=== PATIENT | male | born 1965 | race African-American/Black ===

== ENCOUNTER 2020-11-01 06:34 | Emergency (ER) | payer SELFPAY ==
[2020-11-01 06:36] VITALS: BP 170/134; PULSE 128; RESP 96; TEMP 36.9; O2SAT 95; BMI 25.9
--- NOTE | 2020-11-01 06:55 | ED.VISSUMM ---
- ER Visit Summary Date of Service: 11/01/20 Chief Complaint: Bugs History of Present Illness: The patient is a 55 M who complains of bugs to his teeth, ears, and neck on the left side. This has been going on for days. Never had this before. He does use methamphetamines. Denies any suicidal or homicidal thoughts. He has no trouble taking care of himself. Physical Examination: Hypertensive and tachycardic but otherwise vitals are unremarkable. Head and neck are unremarkable except for poor dentition diffusely. No definite abscess. Airway is intact. No tonsillar swelling noted. No change in voice. He does have some left anterior cervical lymphadenopathy with tiny areas of skin excoriation in 2 places. No other changes to the skin. No insects are noted. Heart is tachycardic but regular. Lungs are clear. Cranial nerves grossly intact. Normal strength and sensation. He is alert and oriented. He is depressed. Test Results: None performed Emergency Department Course and Treatment: I believe a lot of the patient's symptoms are related to methamphetamine use. I do not appreciate any insects. He does have poor dentition with some left side lymphadenopathy, skin excoriation, and ear pain. He may have a dental infection. Airway and the rest of his exam is unremarkable. We will treat with Twyla Beauchamp. Follow-up with dental. Patient was noted to have high blood pressure. He does not have a history of high blood pressure. This is likely from methamphetamine use. He declined any treatment. He does not appear to have a hypertensive emergency. Patient voiced understanding agreement. Outpatient follow-up. Treatment Plan: As above Disposition: Discharge Impression: Poor dentition, methamphetamine use This note was generated with [employer] dictation software. It may contain incorrect words, spelling, and punctuation that were not noted in review of the chart prior to signing ED Disposition - Plan for ED Patient: Referrals: NOT,DEFINED [Primary Care Provider] -
[2020-11-01] MEDS: Penicillin Vk 250 MG Tablet 500 MG PO (06:58)
--- NOTE | 2020-11-01 06:58 | ED.DEP ---
ED Disposition - Plan for ED Patient: Instructions: ED Dental Pain, ED Hypertension, To Be Confirmed, Understanding Methamphetamine Abuse and Addiction Prescriptions: Penicillin V Potassium 500 mg PO 4X/DAY #40 tab Prescription Printed Referrals: [facility] Son [NON-STAFF] -
[2020-11-01 07:23] VITALS: RESP 16
== END 2020-11-01 07:24 | disposition home or self-care (01) ==
LOC: ED 07:16
PROVIDERS: Emergency Provider Emergency Medicine
DX: K08.9 Disorder of teeth and supporting structures, unspecified (principal); F15.90 Other stimulant use, unspecified, uncomplicated; R03.0 Elevated blood-pressure reading, without diagnosis of hypertension
CPT/HCPCS: 99283

== ENCOUNTER 2020-11-06 02:06 | Emergency (ER) | payer SELFPAY ==
[2020-11-06 02:09] VITALS: BP 151/100; PULSE 108; RESP 18; TEMP 36.6; O2SAT 94; BMI 20.7
--- NOTE | 2020-11-06 02:34 | ED.VIS.GEN ---
History of Present Illness Chief Complaint: General Illness Informant: Patient Onset: Weeks - 1 week Context: Gradual Onset Current Severity: Mild Maximum Severity: Mild Narrative: Patient presents due to concern for throat infection. Patient states that he was seen here recently for throat or mouth infection and was given penicillin. He states he continues to have symptoms and believes he has bugs crawling out of his throat. He also has some right ear pain. No fever or chills. Past Medical History - Allergies and Home Meds Allergies/Adverse Reactions: Allergies No Known Allergies Allergy (Verified 11/01/20 06:37) Primary Care Physician: [facility] Son [NON-STAFF] - As soon as possible Past Medical History: None Smoking Status: Current every day smoker Review of Systems General: Denies: Chills, Fever Eyes: Denies: Visual changes - bilaterally ENT: Reports: Right ear pain, Sore throat Cardiovascular: Denies: Chest pain Respiratory: Denies: Dyspnea, Cough Gastrointestinal: Denies: Abdominal pain, Vomiting, Diarrhea Musculoskeletal: Denies: Extremity Pain Neurological: Denies: Headache Hematologic: Denies: Easy bruising, Easy bleeding Allergy: Denies: Uticaria Physical Exam Vital Signs/Narrative: Vital Signs Temp Pulse Resp BP Pulse Ox 11/06/20 02:09 97.8 F 108 H 18 151/100 H 94 Inital Vital Signs reviewed: Yes General: Well nourished, Well developed Head: Normocephalic ENT: TM's clear, - - Patient has mildly dry mucous membranes. There is thick, tacky mucous noted along his tonsils. He does have what looks like a tonsillar stone on the right with some mild inflammation. Posterior pharynx is clear. Patient is tolerating secretions well with strong voice. Uvula is midline. Cardiovascular: Regular rate, Regular rhythm Respiratory: No distress, CTA bilaterally Abdomen: Soft, Nontender Skin: Normal color Neurological: Alert Psychological: Normal affect Diagnostic/Tx/Re-eval - Medical Decision Making Patient does have what appears to be a tonsillar stone on the right. There are some mild inflammation. He is advised to increase fluids. We will switch him to clindamycin. He was advised to follow-up with [facility]. He was advised that he is able to go back to work, he is not contagious. ED Disposition - Plan for ED Patient: Disposition: Home or Assisted Living Diagnosis: Pharyngitis Instructions: ED Pharyngitis, Report Pending Prescriptions: Clindamycin [Cleocin] 300 mg PO TID #60 cap Transmission Status: Received by [facility]MM[facility] [facility] Referrals: Darby Son [NON-STAFF] - As soon as possible
[2020-11-06] MEDS: Clindamycin HCl 150 MG Capsule 300 MG PO (02:42)
[2020-11-06 02:43] VITALS: RESP 16
== END 2020-11-06 02:44 | disposition home or self-care (01) ==
LOC: ED 02:39
PROVIDERS: Emergency Provider Emergency Medicine
DX: J02.9 Acute pharyngitis, unspecified (principal); F17.200 Nicotine dependence, unspecified, uncomplicated
CPT/HCPCS: 99283

== ENCOUNTER 2020-11-10 17:44 | Emergency (ER) | payer SELFPAY ==
[2020-11-10 17:45] VITALS: BP 170/100; PULSE 114; RESP 16; TEMP 36.5; O2SAT 99; BMI 25.4
--- NOTE | 2020-11-10 17:56 | ED.VIS.GEN ---
History of Present Illness Chief Complaint: Mental Health Informant: Patient Narrative: Patient presents with complaint of maggots coming out of his mouth in his right ear. Patient has been seen twice in the last week for similar complaints. I saw him on last visit and he did have a white patch on his right tonsil with mild pharyngitis. He was placed on clindamycin. Patient presents back today stating that he still has maggots coming out of his throat and ear. Past Medical History - Allergies and Home Meds Allergies/Adverse Reactions: Allergies No Known Allergies Allergy (Verified 11/10/20 17:45) Primary Care Physician: Care Physician,No Primary [Primary Care Provider] - Smoking Status: Current every day smoker Drugs: - - Methamphetamines 2 to 3 days ago Review of Systems General: Denies: Chills, Fever Eyes: Denies: Visual changes - bilaterally ENT: Reports: Right ear pain, Sore throat Cardiovascular: Denies: Chest pain Respiratory: Denies: Dyspnea, Cough Gastrointestinal: Denies: Abdominal pain, Vomiting, Diarrhea Musculoskeletal: Denies: Extremity Pain Neurological: Denies: Headache Hematologic: Denies: Easy bruising, Easy bleeding Allergy: Denies: Uticaria Physical Exam Vital Signs/Narrative: Vital Signs Temp Pulse Resp BP Pulse Ox 11/10/20 17:45 97.7 F L 114 H 16 170/100 H 99 Inital Vital Signs reviewed: Yes General: Well nourished, Well developed Head: Normocephalic, Atraumatic Eyes: Perrl, EOMI ENT: - - Cerumen right ear canal. Posterior pharynx examination now clear. Improved when compared to prior study that I performed last week. Cardiovascular: Regular rate, Regular rhythm Respiratory: No distress, CTA bilaterally Abdomen: Soft, Nontender Skin: Normal color Neurological: Alert, Oriented x3 Psychological: - - Anxious Diagnostic/Tx/Re-eval - Medical Decision Making Debrox and ear irrigation was ordered. Patient asked to speak to me first. When I first saw the patient I had an honest discussion with him telling him point blank that there are no bugs crawling out of his skin, throat, or ear. I advised him that this is secondary to the methamphetamines that he has been using. When he asked to speak with me again he just wanted to ensure that he was okay. He states that he will not use any meth. He has follow-up planned with [facility]. He does not want to wait for ear irrigation at this time and is wants to go home. ED Disposition - Plan for ED Patient: Disposition: Home or Assisted Living Diagnosis: Methamphetamine use Instructions: ED Drug Abuse Referrals: Darby Son [NON-STAFF] -
== END 2020-11-10 18:30 | disposition home or self-care (01) ==
LOC: ED 18:26
PROVIDERS: Emergency Provider Emergency Medicine
DX: F15.90 Other stimulant use, unspecified, uncomplicated (principal); F17.200 Nicotine dependence, unspecified, uncomplicated
CPT/HCPCS: 99282

== ENCOUNTER 2020-11-25 22:57 | Emergency (ER) | payer SELFPAY ==
[2020-11-25 22:58] VITALS: PULSE 70; RESP 20; TEMP 35.6; O2SAT 96; BMI 25.7
--- NOTE | 2020-11-25 23:09 | ED.VIS.GEN ---
History of Present Illness Chief Complaint: Bite Informant: Patient Narrative: Patient stated he feels like bugs are crawling out of his fingers and toes. He has been seen here multiple times for this. He has a persistent delusion. Stated he has not used methamphetamines for the last 3 weeks. He supposed to see the start him in clinic for this. He has no history of mental health. Denies any other illicit drugs. No suicidal or homicidal ideation. Past Medical History - Allergies and Home Meds Allergies/Adverse Reactions: Allergies No Known Allergies Allergy (Verified 11/10/20 17:45) Primary Care Physician: Care Physician,No Primary [Primary Care Provider] - Prior records reviewed: Yes Past Medical History: - - Reviewed Surgical History: noncontributory Smoking Status: Former smoker Alcohol: None Drugs: None Review of Systems General: Denies: Chills, Fever, Sweats Eyes: Denies: Visual changes - bilaterally, Diplopia ENT: Denies: Rhinorrhea, Sore throat Cardiovascular: Denies: Chest pain, Palpitations Respiratory: Denies: Dyspnea, Cough, Dyspnea on exertion Gastrointestinal: Denies: Abdominal pain, Nausea, Vomiting, Diarrhea, Melena, Hematochezia Genitourinary: Denies: Dysuria, Hematuria, Frequency Musculoskeletal: Denies: Back pain, Extremity Pain Skin: Denies: Rash, Wounds Neurological: Denies: Headache, Weakness, Numbness Psych: Reports: - - See HPI. Denies: Depression, Anxiety Physical Exam Vital Signs/Narrative: Vital Signs Temp Pulse Resp Pulse Ox 11/25/20 22:58 96.1 F L 70 20 H 96 General: Well nourished, Well developed, No Acute Distress Head: Normocephalic, Atraumatic Eyes: Perrl, EOMI ENT: Moist mucous membranes, No rhinorrhea Neck: Supple, Nontender Cardiovascular: Regular rate, Regular rhythm, No murmurs Respiratory: No distress, CTA bilaterally, Chest nontender Abdomen: Soft, Nontender, Nondistended, Normal bowel sounds Back: Nontender, Normal Inspection Extremities: Nontender, No edema Skin: Normal color, No rash, - - Small superficial abrasion of the back of the left hand. Small superficial cut to the left thumb. No foreign bodies or insects Neurological: Alert, Oriented x3, Cranial nerves II-XII grossly intact, Normal Strength, Normal Sensation Psychological: Normal affect, Normal Mood Diagnostic/Tx/Re-eval - Medical Decision Making Patient reassured. This appears to be a delusion. There is no signs or symptoms of insects on the body. We will follow-up with mental health with counseling center ED Disposition - Plan for ED Patient: Diagnosis: Delusion Referrals: Counseling,Center [GROUP OF PHYSICIANS] -
== END 2020-11-25 23:15 | disposition home or self-care (01) ==
LOC: ED 23:13
PROVIDERS: Emergency Provider Emergency Medicine
DX: F22 Delusional disorders (principal); Z87.891 Personal history of nicotine dependence
CPT/HCPCS: 99282

== ENCOUNTER 2021-01-19 14:57 | Emergency (ER) | payer SELFPAY ==
[2021-01-19 14:58] VITALS: BP 158/105; PULSE 119; RESP 15; TEMP 36.1; O2SAT 99; BMI 25.6
--- NOTE | 2021-01-19 15:08 | ED.DCSUM_ITS ---
History of Present Illness Chief Complaint: Mental Health Informant: Patient Onset: Today Narrative: 55-year-old male presenting with chief complaint of bugs crawling from his fingers. He states this started today when he was working. He arrives with surgical gloves on his hands. When he removes them there is some calluses and blue ink which he describes as looking like bugs. He states he has no medical problems or psychiatric history. He is eating and drinking normally. Is making normal urine and stool. He is not suicidal or homicidal. He has been seen before for this symptom and he is supposed to follow-up with the counseling center. Past Medical History - Allergies and Home Meds Allergies/Adverse Reactions: Allergies No Known Allergies Allergy (Verified 11/10/20 17:45) Primary Care Physician: Care Physician,No Primary [Primary Care Provider] - Prior records reviewed: Yes Past Medical History: - - Delusions Surgical History: noncontributory Lives: Alone Smoking Status: Former smoker Alcohol: Occasional Drugs: - - Mitts to history of methamphetamine use Review of Systems General: Denies: Chills, Fever, Sweats Eyes: Denies: Visual changes - bilaterally, Diplopia ENT: Denies: Rhinorrhea, Sore throat Cardiovascular: Denies: Chest pain, Palpitations Respiratory: Denies: Dyspnea, Cough, Dyspnea on exertion Gastrointestinal: Denies: Abdominal pain, Nausea, Vomiting, Diarrhea, Melena, Hematochezia Genitourinary: Denies: Dysuria, Hematuria, Frequency Musculoskeletal: Denies: Back pain, Extremity Pain Skin: Denies: Rash, Wounds Neurological: Denies: Headache, Weakness, Numbness Psych: Reports: - - Admits of seeing bugs crawling out of his fingers.. Denies: Anxiety, Suicidal thoughts, Suicidal ideations Physical Exam Vital Signs/Narrative: Vital Signs Temp Pulse Resp BP Pulse Ox 01/19/21 14:58 96.9 F L 119 H 15 158/105 H 99 Inital Vital Signs reviewed: Yes General: Well nourished, No Acute Distress Head: Normocephalic, Atraumatic Eyes: Perrl, EOMI ENT: Moist mucous membranes, No rhinorrhea Cardiovascular: Regular rhythm, Tachycardia Respiratory: No distress, CTA bilaterally Abdomen: Soft, Nontender, Nondistended Extremities: Nontender, No edema, - - This is noted to all of his fingertips. There is blue ink or grease on the tips of his fingers. There are no bugs or bites on his fingers. Skin: Normal color, No rash Neurological: Alert, Oriented x3, Cranial nerves II-XII grossly intact Psychological: - - Anxious and pointing to the tips of his fingers saying there are bugs Diagnostic/Tx/Re-eval - Medical Decision Making Patient presenting with formication symptoms. He feels there is bugs crawling under his fingertips and under his fingernails. There is no visualized insects or bugs. There are some calluses and some blue ink or grease on there. He is pointing at the [place] on his fingers and calling this bugs. He was counseled th at there are none. Social work did see him and will have crisis follow-up with him tomorrow. Patient does admit to use of methamphetamine but he states it has been 3 months. Patient has been here multiple times for this. Is not suicidal or homicidal. I believe he is safe for discharge. Impression: 1. Formication ED Disposition - Plan for ED Patient: Disposition: Home or Assisted Living Referrals: Care Physician,No Primary [Primary Care Provider] - Additional Instructions: You were seen today for formication which is the feeling of insects crawling across her skin. There are no insects crawling from your fingertips. The crisis center will reach out to you tomorrow and try to get you follow-up and evaluation.
--- NOTE | 2021-01-19 15:53 | CM.ED ---
Social Work Consult: Mental Health Referral source: Dr. Miller Informant: Dr. Miller, Chart, nursing staff, patient. Chief Complaint: Patient states bugs under my skin. Marital/Social History: . Living Situation: Lives alone at private residence. Support/Resources: Appointment scheduled for Thursday January 21, 2021 at 10:40am with [facility] to set up as PCP. No other community agencies involved. History: None Education/Employment: Works full-time at [employer]. Denies any issues with comprehension or understanding. Mental Health Treatment/History: Denies any mental health history. Denies any history of inpatient psychiatric placement. Triggers/Stressors: Recent break-up it really has gotten to me. Abuse Issues: Denies Substance Abuse: Reports meth use three months ago but denies any other use. Patient does report alcohol use and to consume a 12 pack in 3-4 days. Patient denies any other substance abuse/use. Risk to Self/Others: Patient denies suicidal thoughts, plans, intents or history of. Patient denies homicidal thoughts, plans, or intents. Patient denies self harming behaviors or thoughts. Patient denies harm to others. Mental Status Exam: A&Ox3 Appearance/General Behavior: Clean. Disheveled. Directable. Mood/Affect: Anxious. Paranoid. Communication Pattern: Responds to conversation. Initiates conversation. Thought Process: Reports visual hallucinations of seeing bugs coming out of patient fingers. Patient denies auditory hallucinations. Judgement: Fair. Assessment: Met with patient in room. Introduced self and social insurance analyst role. Patient agreeable to speak with this social insurance analyst. Patient reports to have been seeing bugs or feeling that bugs are under patient skin for an undetermined amount of time. Patient reports to be eating, drinking and showering/caring for self. Patient denies any transportation or housing issues. Patient reports to have missed work last week due to stress as a result of resent break up with girlfriend. Patient states multiple times throughout assessment, you don't see them do you. This social insurance analyst confirming to not see any bugs coming out of patient. Patient states good, that means I am not dying. Patient wanting to return to worker, now that I know I am not dying. Patient denies any recent Meth use other than three months ago. Patient denies any mental health history or concerns. This social insurance analyst noting that patient has been to the emergency room multiple times for smilier complaint for visit today. Patient agrees to have been in the emergency room multiple times for same reason. Patient does not feel that patient needs hospitalized. This social insurance analyst inquired if patient has follow up with crisis as per chart review patient has spoken with crisis in the past. Patient denies having any current mental health services/resources set up. Patient is agreeable to this social insurance analyst contacting crisis to complete follow-up call with patient tomorrow. Patient forward thinking and goal oriented. Patient caring for self. Patient reports that symptoms come and go. Patient wanting to return to work today. This social insurance analyst provided patient with crisis resources and local counseling agencies and encouraging patient to establish with mental health provider. Patient voices understanding and agreeable with plan to discharge to community. Patient is also agreeable to social work follow-up call later this week. Collaborating with Dr. Miller. Patient does not meet pink slip criteria. Patient provided with mental health resources. Patient to discharge to home with crisis follow-up call tomorrow. Telephone call to Marlene amaro. Marleen to complete crisis follow-up call with patient tomorrow. Yisel Butler MSW, [place]
--- NOTE | 2021-01-21 17:00 | CM.ED ---
Social Work Telephone call to patient per plan for follow-up call, no answer. Voicemail left. Yisel Butler MSW, [place]
== END 2021-01-19 15:52 | disposition home or self-care (01) ==
PROVIDERS: Emergency Provider Student in an Organized Health Care Education/Training Program
DX: R20.2 Paresthesia of skin (principal); Z87.891 Personal history of nicotine dependence
CPT/HCPCS: 99282

== ENCOUNTER 2021-04-15 12:05 | Emergency (ER) | payer OTHER, SELFPAY ==
[2021-04-15 12:06] VITALS: BP 152/103; PULSE 99; RESP 14; TEMP 36.4; O2SAT 97; BMI 24.7
--- NOTE | 2021-04-15 12:17 | EX.ED.DYSGE1 ---
HPI History of Present Illness Chief Complaint: Bite Detail of Chief Complaint: Rash to face and back Informant: patient Narrative Narrative: Patient presents to the emergency department with a rash that he has had for many months to the face and back. Patient states that he was going through a divorce and was doing drugs this last winter and was using methamphetamines. Subsequently patient developed a rash to his face. Patient states that he has not used meth in approximately 1 month. He denies any fevers. Patient does not have any medical history. Prior similar symptoms: No PFSH PFSH Home Medications penicillin V potassium 500 mg PO 4X/DAY #40 tab 11/01/20 [Rx Last Taken Unknown] clindamycin HCl 300 mg PO TID #60 cap 11/06/20 [Rx Last Taken Unknown] cephalexin 500 mg PO Q6 #40 capsule 04/15/21 [Rx Last Taken Unknown] sulfamethoxazole-trimethoprim [Bactrim DS] 1 tab PO BID #20 tab 04/15/21 [Rx Last Taken Unknown] Allergy/AdvReac Type Severity Reaction Status Date / Time No Known Allergies Allergy Verified 04/15/21 12:05 Social History Smoking Status: Unknown if ever smoked ROS ROS ED Constitutional Constitutional ED: Reports systems reviewed and no addt'l complaints, except as documented; Denies body ache(s), change in weight or chills Eyes Eyes: Denies acute decrease in peripheral vision, change in vision, double vision or loss of vision ENT ENT ED: Reports none; Denies ear pain, lip swelling, loss taste/smell, neck pain, otalgia or sore throat Cardiovascular Cardiovascular: Reports none; Denies abdominal pain, chest pain with activity, leg edema, lightheadedness, palpitations, rapid heart rate or syncope Respiratory/Chest Respiratory/Chest: Reports none; Denies change in mental status, dry cough, dyspnea, hemoptysis, shortness of breath at rest or shortness of breath with exertion Gastrointestinal Gastrointestinal: Reports none; Denies abdominal pain, change in stool character, diarrhea, hematemesis, hematochezia, melena, rectal bleeding or vomiting Genitourinary Genitourinary ED: Reports none; Denies abdominal discomfort, anuria, dysuria, genital pain or polyuria Musculoskeletal Musculoskeletal: Reports none; Denies arthralgias, back pain, difficulty walking, extremity pain, muscle weakness or myalgias Integumentary Reports none and rash; Denies abscess Neurologic Neurologic: Reports none; Denies abnormal gait, confusion, focal weakness, frequent falls, headache(s), loss of vision, numbness, paresthesias, radicular pain, vertigo or weakness Psychiatric Psychiatric: Reports systems reviewed and no addt'l complaints, except as documented and none; Denies behavioral changes, confusion, difficulty concentrating, hallucinations, suicidal ideation, tactile hallucinations or visual hallucinations Endocrine Endocrinology: Denies none, cold intolerance, excessive sweating, fatigue or heat intolerance Hematologic/Lymphatic Hematologic/Lymphatic: Reports none; Denies anemia, easy bleeding or easy bruising Allergic/Immunologic Allergic/Immunologic ED: Denies as per HPI, none, lip swelling, mouth swelling, throat swelling, tongue swelling or hives EXAM Physical Exam Const Vital Signs: 04/15/21 12:06 Temperature 97.6 F L Temperature Source Temporal Pulse Rate 99 Respiratory Rate 14 Blood Pressure 152/103 H Blood Pressure Mean 119 Pulse Ox 97 Oxygen Delivery Method Room Air Positive well nourished and well developed General Appearance ED: well developed and NAD HEENT Reports TM's clear and moist mucous membranes HEENT Narrative: Patient does have multiple small ulcerated lesions involving the scalp and face. No overt cellulitis or abscess noted. No abnormalities of the oral mucosa noted. Patient also has a similar lesion on his upper back. normocephalic and atraumatic; Negative for trauma or tenderness Tympanic Membrane ED: Yes TM's clear Eyes PERRL and EOMs intact bilaterally General Eye ED: Negative for pale conjunctiva or scleral icterus Neck no lymphadenopathy, supple and no JVD General: Negative for tenderness Chest Wall inspection of chest normal and palpation of chest normal Chest: Negative for tenderness Resp normal respiratory effort and clear to auscultation bilaterally Effort and Inspection: Negative for respiratory distress or pain with movement Auscultation: Negative for rhonchi, wheezes or diminished lung sounds Cardio regular rate, regular rhythm, S1 normal heart sound, S2 normal heart sound and no murmurs Peripheral Pulses: pulses 2+ throughout GI normal to inspection, nondistended, normoactive bowel sounds, soft to palpation, non-tender, non-distended and no masses Back/Spine no CVA tenderness and no thoracic nor lumbar tenderness Extremity normal to inspection General Extremety ED: Negative for edema General Extremity: Negative for edema Neuro oriented x3, CN's II-XII intact bilaterally, no sensory deficits noted and gait normal Sensorium / Orientation: awake, alert, oriented to person, oriented to place and oriented to time Motor Exam: strength 5/5 throughout and strength abnormal Psych mental status grossly normal Skin no rashes or lesions noted and no wounds Skin Narrative: Patient has ulcerated lesions to his face and one lesion to the upper back. MDM MDM MDM Narrative Medical decision making narrative: I suspect patient's rash likely related to methamphetamines. Patient will be started on Keflex and Bactrim to treat for staph/MRSA. I will refer him to dermatology for follow-up. Discharge Plan Triage Chief Complaint: Bite ED Provider: July Peña Dx/Rx/DC Orders Clinical Impression: Infection, skin, staph Instructions: ED Skin Infec MRSA Suspect Conf Prescriptions: New cephalexin [cephalexin] 500 MG capsule 500 mg PO Q6 Qty: 40 RF: 0 sulfamethoxazole-trimethoprim [Bactrim DS] 800-160 mg tablet 1 tab PO BID Qty: 20 RF: 0 No Action penicillin V potassium 500 MG tablet 500 mg PO 4X/DAY Qty: 40 RF: 0 clindamycin HCl 150 MG capsule 300 mg PO TID Qty: 60 RF: 0 Primary Care Provider: Care Physician,No Primary Referrals: Care Physician,No Primary [Primary Care Provider] -
[2021-04-15] MEDS: Cephalexin 250 MG Capsule 500 MG PO (12:22)
[2021-04-15] MEDS: Smz/Tmp Ds Tablet 1 TABLET PO (12:22)
== END 2021-04-15 12:40 | disposition home or self-care (01) ==
PROVIDERS: Emergency Provider Emergency Medicine
DX: R21 Rash and other nonspecific skin eruption (principal)
CPT/HCPCS: 99283

== ENCOUNTER 2021-05-17 05:14 | Emergency (ER) | payer OTHER, SELFPAY ==
[2021-05-17 05:15] VITALS: BP 147/117; PULSE 99; RESP 16; TEMP 35.9; O2SAT 97
--- NOTE | 2021-05-17 05:34 | EX.ED.DYSGE1 ---
HPI History of Present Illness Chief Complaint: Anxiety Informant: patient Onset/Context/Timing Onset: Yesterday Context: Gradual Onset Timing: Continuous Quality: Pruritic Location: Head, face, hands Worsened by: Nothing Relieved by: Nothing Narrative Narrative: Patient presents with anxiety and sores on his face that began yesterday. Patient states that he feels like there are bugs coming out of his skin. Patient noted some on his right hand. Patient also noted some on his face. Patient thinks there are some coming out of his head. Patient states they itch. Patient states nothing makes it better nothing makes it worse. Patient has been seen here before for this. 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 Patient states he has not been using meth for the last couple months. Patient denies any fevers or chills. PFSH PFSH no medical history Home Medications cephalexin 500 mg PO Q6 #40 capsule 05/17/21 [Rx Last Taken Unknown] Allergy/AdvReac Type Severity Reaction Status Date / Time No Known Allergies Allergy Verified 05/17/21 05:20 no surgical history Social History Smoking Status: Unknown if ever smoked ROS ROS ED Constitutional Constitutional ED: Denies chills or fever(s) Eyes Eyes: Denies blurry vision or change in vision ENT ENT ED: Reports sore throat; Denies rhinorrhea Cardiovascular Cardiovascular: Denies chest pain or palpitations Respiratory/Chest Respiratory/Chest: Denies cough or dyspnea Gastrointestinal Gastrointestinal: Denies nausea or vomiting Genitourinary Genitourinary ED: Denies dysuria or hematuria Musculoskeletal Musculoskeletal: Reports neck pain; Denies back pain Integumentary Reports rash; Denies abscess Neurologic Neurologic: Denies headache(s) or weakness Psychiatric Psychiatric: Reports anxiety Allergic/Immunologic Allergic/Immunologic ED: Denies mouth swelling or urticaria EXAM Physical Exam Const Vital Signs: 05/17/21 05:15 Temperature 96.7 F L Temperature Source Temporal Pulse Rate 99 Respiratory Rate 16 Blood Pressure 147/117 H Blood Pressure Mean 127 Pulse Ox 97 Oxygen Delivery Method Room Air Positive well nourished and well developed General Appearance ED: well developed HEENT Reports moist mucous membranes Eyes PERRL and EOMs intact bilaterally Neck supple and no JVD Neuro oriented x3, CN's II-XII intact bilaterally and no sensory deficits noted Sensorium / Orientation: alert Motor Exam: strength 5/5 throughout Psych mental status grossly normal Mood & Affect: anxious Skin Skin Narrative: There are superficial ulcerations over the nose. There is no active bleeding. There are no foreign bodies noted. There is no involvement of the mucosa. There is an old blister noted over the radial aspect of the PIP joint of the right index finger. There is no bleeding. There is full range of motion. MDM MDM MDM Narrative Medical decision making narrative: I do not see any bugs or insects in the wounds. I advised the patient of this. Patient was given a prescription for Keflex. Patient was given a dose of Keflex and Vistaril here. Patient was instructed to follow-up with his primary care physician in 3 to 5 days. Patient was also instructed to follow-up with the counseling center. Patient understood and was agreeable with the plan. All questions were answered. Discharge Plan Triage Chief Complaint: Anxiety ED Provider: Sabino Carrillo Dx/Rx/DC Orders Clinical Impression: Infection, skin, staph Instructions: ED Wound Check (Infection) Prescriptions: New cephalexin [cephalexin] 500 MG capsule 500 mg PO Q6 Qty: 40 RF: 0 Primary Care Provider: Care Physician,No Primary Referrals: [facility] [NON-STAFF] - 3-5 Days Care Physician,No Primary [Primary Care Provider] - Disposition Disposition: Home, Self Care
[2021-05-17 05:43] VITALS: PULSE 99; RESP 16; O2SAT 97
[2021-05-17] MEDS: Cephalexin 500 MG Capsule PO (05:54)
[2021-05-17] MEDS: hydrOXYzine PAM 25 MG Capsule PO (05:54)
== END 2021-05-17 05:56 | disposition home or self-care (01) ==
LOC: ED 05:50
PROVIDERS: Emergency Provider Emergency Medicine
DX: L08.9 Local infection of the skin and subcutaneous tissue, unspecified (principal); B95.8 Unspecified staphylococcus as the cause of diseases classified elsewhere
CPT/HCPCS: 99283

== ENCOUNTER → 2021-05-27 10:58 | Outpatient (CLI) | payer OTHER, SELFPAY ==
[2021-05-27 12:07] LABS: Erythrocyte Sedimentation Rate 28 mm/hr (0-20)
[2021-05-27 12:09] LABS: Absolute Lymphocyte Count 1.92 X10^3/uL (0.83-4.51); Basophil# 0.03 X10^3/uL; Basophil% 0.5 % (0-1); Eosinophil# 0.12 X10^3/uL; Eosinophils% 2.1 % (0-5); Hematocrit 43.8 % (40-54); Hemoglobin 13.5 g/dL (13.0-16.5); Lymphocyte # 1.92 X10^3/ul (0.83-4.51); Lymphocyte % 34.2 % (19-41); Mean Corp Hgb Conc 30.8 g/dL (32-36); Mean Corpuscular Hgb 28.7 pg (27.0-32.0); Mean Platelet Vol. 10.6 fl (6.2-12.0); Monocyte% 8.9 % (0-10); NRBC Flagged by Analyzer 0 % (0-5); Neutrophil # 3.03 X10^3/uL (2.7-7.7); Neutrophil % 54.1 % (47-70); Platelet Count 310 K/mm3 (150-450); RBC Distribution Width CV 13.4 % (11.6-14.6); RBC Distribution Width SD 46.4 fl (35.1-43.9); Red Blood Count 4.71 M/mm3 (4.6-6.2); White Blood Count 5.6 K/mm3 (4.4-11.0)
[2021-05-27 12:55] LABS: ALB/GLOB Ratio 0.7 RATIO (0.9-2.4); AST(SGOT) 17 U/L (15-37); Alanine Aminotransfer ALT/SGPT 25 U/L (16-61); Albumin, Serum 3.3 g/dL (3.2-5.0); Alkaline Phosphatase 83 U/L (45-117); Anion Gap 4 (5-15); BUN 14 mg/dL (7-18); BUN/Creat Ratio 16.1 RATIO (10-20); Calcium,Total 8.7 mg/dL (8.5-10.1); Chloride 107 mmol/L (98-107); Cholesterol 108 mg/dL (200); Creatinine, Serum 0.87 mg/dL (0.70-1.30); EST Glomerular Filtration Rate 96 mL/min (>60); Est Glom Filt Rate - Afr Amer 117 mL/min (>60); Globulin 4.6 g/dL (2.2-4.2); Glucose 95 mg/dL (74-106); High Density Lipoprotein 51 mg/dL; Potassium 4.8 mmol/L (3.5-5.1); Protein, Total 7.9 g/dL (6.4-8.2); Sodium Level 140 mmol/L (136-145); Triglycerides 39 mg/dL; Very Low Density Lipoprotein 8 mg/dL (5-40)
[2021-05-27 13:05] LABS: HIV - WCH Non-Reactive (Nonreactive); Syphilis Antibodies Non-reactive; Vitamin B12 357 pg/mL (211-911)
== END ==
LOC: LAB 11:04
PROVIDERS: Referring Provider Family Medicine; Visit Provider Family Medicine
DX: F41.9 Anxiety disorder, unspecified (principal)
CPT/HCPCS: 36415; 80053; 80061; 82607; 82746; 84443; 85025; 85652; 86703; 86780

== ENCOUNTER 2022-02-04 12:35 | Emergency (ER) | payer MEDICAID, SELFPAY ==
[2022-02-04 12:36] VITALS: BP 147/103; PULSE 97; RESP 18; TEMP 35.8; O2SAT 96; BMI 20.7
--- NOTE | 2022-02-04 13:18 | EDS_ITS ---
HPI History of Present Illness Chief Complaint: General Illness Informant: patient Narrative Narrative: Patient is a 57 year old male with no known medical history presenting with concern for skin problem. Patient states for the past year he has had sensation of his skin burning and changes around his fingernails, face and eyes. Patient's had multiple ER visits for similar complaints. He states he sees a inside sales manager at the [facility]. He has been prescribed different creams and medicines for this. Patient is concerned that he could have something infectious or contagious. He denies any systemic symptoms. He does admit to smoking some type of drug last week but does not think that worsen his symptoms. He is not sure what was in it but thinks it might of been more fentanyl related. He denies any psychiatric history but has has been evaluated for psychiatric cause for his concern of his skin. Patient is concerned there are bugs in his skin. No other complaints at this time. PFSH PFSH Medical History no medical history no medical history Home Medications cephalexin 500 mg PO Q6 #40 capsule 05/17/21 [Rx Last Taken Unknown] emollient combination no.72 [Eucerin Intensive Repair] 1 ea TOPICAL BID PRN PRN #250 ml 02/04/22 [Rx Last Taken Unknown] mupirocin 1 applic TOPICAL BID #15 g 02/04/22 [Rx Last Taken Unknown] Allergy/AdvReac Type Severity Reaction Status Date / Time No Known Allergies Allergy Verified 02/04/22 12:37 Social History Smoking Status: Unknown if ever smoked ROS ROS ED Constitutional Constitutional ED: Reports weight loss; Denies chills, fever(s) or sweats Eyes Eyes: Denies blurry vision or change in vision ENT ENT ED: Denies ear pain, rhinorrhea or sore throat Cardiovascular Cardiovascular: Denies chest pain or palpitations Respiratory/Chest Respiratory/Chest: Denies dyspnea Gastrointestinal Gastrointestinal: Denies abdominal pain or vomiting Musculoskeletal Musculoskeletal: Denies arthralgias or myalgias Integumentary Reports rash Neurologic Neurologic: Denies headache(s) or weakness Psychiatric Psychiatric: Reports anxiety; Denies depression, suicidal ideation or suicidal thoughts EXAM Physical Exam Const Vital Signs: 02/04/22 12:36 Temperature 96.5 F L Temperature Source Temporal Pulse Rate 97 Respiratory Rate 18 Blood Pressure 147/103 H Blood Pressure Mean 117 Pulse Ox 96 Oxygen Delivery Method Room Air Positive well nourished and well developed General Appearance ED: well developed and NAD HEENT Reports moist mucous membranes HEENT Narrative: No mouth lesions appreciated. Normal oropharynx Negative for trauma or tenderness Eyes PERRL and EOMs intact bilaterally Eyes Narrative: Normal conjunctiva. Normal sclera. No lesions of the eye or periorbital region appreciated. Neck no lymphadenopathy and supple Chest Wall inspection of chest normal Resp normal respiratory effort and clear to auscultation bilaterally Cardio regular rate, regular rhythm and no murmurs GI normal to inspection, nondistended, normoactive bowel sounds and non-tender Palpation: soft Back/Spine no CVA tenderness Extremity normal to inspection Neuro oriented x3 and CN's II-XII intact bilaterally Sensorium / Orientation: alert Motor Exam: Negative for general weakness Psych Psych Narrative: Patient is very anxious but otherwise acting appropriately. Denies any HI or SI. States he is living with a family friend. Feels safe at home. Mood & Affect: anxious Skin no rashes or lesions noted and no wounds Skin Narrative: No obvious lesions appreciated. Patient does have picking at his cuticles as well as calluses and dry skin on his hand that he points to as his areas of concern. No signs of a paronychia more infection. No lesions consistent with bug bites or scabies. Some dry skin noted on the back but no abnormal lesions appreciated. Patient does have some slight erythematous lesions around his nose that appear to be chronic. There is documentation of them from prior ER visits months back. They are nondraining with no cellulitic changes, induration or pustules. MDM MDM MDM Narrative Medical decision making narrative: Patient evaluated for skin concern. He is well-appearing. He appears nontoxic. He is anxious. Patient counseled that I do not see any pathological or infectious lesions on his skin. He is counseled that the bumps on his skin around his nose could be skin cancer and he needs a follow-up with dermatology which she does see [facility]. He is also counseled that a lot of this could be from skin picking. The changes on his hands are more consistent with dry skin. He is counseled on using a moisturizer regularly. He is also counseled that his symptoms could be more anxiety/psychiatric related. It is possible that it could be related to drug use however he denies any recent amphetamine use. Patient will be given information for the counseling center as well. He feels comfortable going home. At this time there does not appear to be an emergent process requiring further evaluation. Discharge Plan Triage Chief Complaint: General Illness ED Provider: Delmy Neff Dx/Rx/DC Orders Clinical Impression: Dry skin, Other skin changes, Concern about skin disease without diagnosis Prescriptions: New Eucerin Intensive Repair Lotion 1 ea topical BID PRN PRN (Reason: dry skin) Qty: 250 RF: 0 mupirocin 2 % ointment 1 applic topical BID Qty: 15 RF: 0 No Action cephalexin [cephalexin] 500 MG capsule 500 mg PO Q6 Qty: 40 RF: 0 Primary Care Provider: Care Physician,No Primary Referrals: Counseling,Center [GROUP OF PHYSICIANS] - [facility] Son [NON-STAFF] - Care Physician,No Primary [Primary Care Provider] - Disposition Disposition: Home, Self Care
[2022-02-04 13:50] VITALS: BP 147/103; PULSE 97; RESP 18
== END 2022-02-04 14:16 | disposition home or self-care (01) ==
LOC: ED 14:10
PROVIDERS: Emergency Provider Emergency Medicine; Visit Provider Emergency Medicine
DX: L85.3 Xerosis cutis (principal); L84 Corns and callosities; Z71.1 Person with feared health complaint in whom no diagnosis is made
CPT/HCPCS: 99282

== ENCOUNTER 2022-04-20 14:50 | Emergency (ER) | payer MEDICAID, SELFPAY ==
[2022-04-20 14:51] VITALS: BP 171/98; PULSE 120; RESP 18; TEMP 36.6; O2SAT 99; BMI 22.8
--- NOTE | 2022-04-20 15:11 | EDS_ITS ---
HPI History of Present Illness Chief Complaint: Rash Detail of Chief Complaint: Concern patient has bugs penetrating through his skin Informant: patient Onset/Context/Timing Onset: - (Patient states he is presented to the emergency room for similar prob lems for 1 year) Context: Gradual Onset Timing: Continuous Quality: Sore nose and reported bugs penetrating through his skin Location: Hands and face Current Severity: Unable to quantitate Maximum Severity: Unable to quantitate Worsened by: The lesion on the skin may be worse because of patient placing creams on it Relieved by: Nothing Associated Symptoms Associated Symptoms: Denies formication. Denies any other symptoms. Narrative Narrative: Patient is a 57-year-old male who believes he has bugs coming through his skin. He pointed out multiple areas on his digits right and left hand. He also is concerned regarding the wound superior to the right naris. He removed a Band- Aid. He attempted to point out bugs that were on the Band-Aid. I informed him I do not see bugs. He does have dry skin. He denies fever, chills night sweats he denies weight loss or weight gain. He is not on an antidepressant or antipsychiatric med. Patient is insistent that he has bugs crawling under his skin and are coming out of his skin. Patient was informed I am concerned regarding the lesion on his nose and may be cancerous. I informed him that I would make a referral to dermatology. His response was I cannot lose my job . Prior similar symptoms: Yes Recent Illness/Hospitalization: Yes PFSH PFSH Medical History no medical history no medical history (None that patient admits to. Patient became agitated when asked if he was on any psychiatric medications.) Home Medications cephalexin 500 mg capsule 500 mg PO Q6 #40 CAPSULES 05/17/21 [Rx Last Taken Unknown] emollient combination no.72 (Eucerin Intensive Repair) 1 ea topical BID PRN PRN dry skin #250 mL 02/04/22 [Rx Last Taken Unknown] mupirocin 2 % topical ointment 1 applic topical BID #15 grams 02/04/22 [Rx Last Taken Unknown] Allergy/AdvReac Type Severity Reaction Status Date / Time No Known Allergies Allergy Verified 04/20/22 14:54 Family History unable to obtain unable to obtain Surgical History unable to obtain unable to obtain Social History (Updated 04/20/22 @ 15:[address] Kareem Suarez MD) household members: none Smoking Status: Never smoker substance use type: does not use ROS ROS ED Constitutional Constitutional ED: Denies chills, fever(s), subjective, sweats or weight loss Gastrointestinal Gastrointestinal: Denies diarrhea, nausea or vomiting Musculoskeletal Musculoskeletal: Denies arthralgias, back pain, myalgias or neck pain Integumentary Reports rash; Denies abscess or Abrasions Neurologic Neurologic: Denies headache(s), paresthesias or weakness Psychiatric Psychiatric: Reports anxiety; Denies depression or suicidal ideation Hematologic/Lymphatic Hematologic/Lymphatic: Denies easy bleeding, easy bruising or lymphadenopathy Allergic/Immunologic Allergic/Immunologic ED: Denies mouth swelling, tongue swelling or urticaria EXAM Physical Exam Const Vital Signs: 04/20/22 14:51 Temperature 97.8 F Temperature Source Temporal Pulse Rate 120 H Respiratory Rate 18 Blood Pressure 171/98 H Blood Pressure Mean 122 Pulse Ox 99 Oxygen Delivery Method Room Air Positive well nourished and well developed; Negative for obese, cachectic, contractures or unkempt Constitutional Narrative: Patient appears anxious. He is pacing. He is insistent that he has bugs even when he was informed that I did not see any. He states he has come here before and became agitated when I informed him I did not see any bugs. General Appearance ED: well developed; Negative for unkempt, cachectic, contractures, cyanotic, diaphoretic, NAD or pallor Nutritional Appearance: Negative for cachectic or obese HEENT Reports moist mucous membranes Negative for trauma or tenderness Eyes PERRL and EOMs intact bilaterally General Eye ED: Negative for pale conjunctiva or scleral icterus Neck no lymphadenopathy, supple and no JVD Extremity normal to inspection Extremity Narrative: Patient does have dry skin. When patient was told what he is interpreted as bugs is dry skin he became agitated. Neuro oriented x3, CN's II-XII intact bilaterally and no sensory deficits noted Sensorium / Orientation: alert Motor Exam: strength 5/5 throughout Psych Psych Narrative: Patient with delusional thoughts regarding bugs. Patient is slightly hyperactive. Speech is not pressured. He denies psychiatric disorder or psychiatric meds. Appearance: Negative for unkempt Skin No no rashes or lesions noted, No no wounds and skin turgor normal General Skin Exam: Negative for jaundice or pallor Rashes: rashes noted Dyshidrotic eczema. There is an ulcerative lesion on the nose and raises concern for basal cell carcinoma MDM MDM MDM Narrative Medical decision making narrative: Patient with abnormal behavior. Concern patient has psychiatric disorder. Patient is not homicidal or suicidal. Patient does have dyshidrotic eczema. There is a lesion on the nose which raises concern for malignancy. Patient left prior to getting paperwork. Plan was referral to dermatology. Discharge Plan Triage Chief Complaint: Rash ED Provider: Kareem Suarez Dx/Rx/DC Orders Clinical Impression: Dyshidrotic eczema, External nasal lesion Instructions: ED Atopic Dermatitis (Adult) Prescriptions: No Action cephalexin [cephalexin] 500 MG capsule 500 mg PO Q6 Qty: 40 0RF Eucerin Intensive Repair Lotion 1 ea topical BID PRN PRN (Reason: dry skin) Qty: 250 0RF mupirocin 2 % ointment 1 applic topical BID Qty: 15 0RF Rx Instructions: apply to nasal area Primary Care Provider: Care Physician,No Primary Referrals: Care Physician,No Primary [Primary Care Provider] - Activity Restrictions/Additional Instructions: There is concerned that the lesion on your nose may represent cancer. Recommend follow-up with Dr. Tesfaye Disposition Disposition: Home, Self Care
== END 2022-04-20 15:58 | disposition left against medical advice (07) ==
PROVIDERS: Emergency Provider Emergency Medicine; Visit Provider Emergency Medicine
DX: L30.1 Dyshidrosis [pompholyx] (principal); L98.9 Disorder of the skin and subcutaneous tissue, unspecified
CPT/HCPCS: 99282

== ENCOUNTER 2024-03-21 09:51 | Emergency (ER) | payer SELFPAY ==
[2024-03-21 09:51] VITALS: BP 201/103; PULSE 59; RESP 18; TEMP 37.1; O2SAT 98; BMI 28.1
--- NOTE | 2024-03-21 10:11 | CT_ITS ---
STUDY: CT ABDOMEN AND PELVIS WITH CONTRAST REASON FOR EXAM: Male, 59 years old. Nausea and vomiting. Bilateral lower abdominal pain. RADIATION DOSAGE (If Supplied By Facility): CTDIvol = ( 13.25 ) mGy, DLP = ( 1034.85 ) mGycm TECHNIQUE: Transaxial images were obtained from the dome of the diaphragm to the symphysis pubis without oral contrast. IV 100mL Isovue-300 was administered. Sagittal and coronal images were reconstructed. Individualized dose optimization techniques were used for this CT. COMPARISON: None. FINDINGS: Minimal increased linear markings The visualized portions of the heart are within normal limits. Normal liver. Normal gallbladder and extrahepatic biliary system. Normal spleen. Normal pancreas. Normal bilateral adrenal glands. Normal right kidney. Normal left kidney. There is a small hiatal hernia. Normal small intestine. Findings suggestive of a colitis involving the descending colon and the transverse colon. There is a involvement of the proximal descending colon. The appendix is visualized and appears normal. There is scattered atherosclerotic calcification of the abdominal aorta, without a demonstrated aneurysm. Normal inferior vena cava. Normal retroperitoneum. Normal urinary bladder. There is enlargement of the prostate gland. Prostate measures 3.4 cm x 4.4 cm. There is a left-sided inguinal hernia containing adipose tissue. There are degenerative changes of the visualized lumbar spine. CT/Abdomen/Pelvis W IV Cont ONLY IMPRESSION: Findings suggestive of colitis involving the ascending colon, transverse colon and portion of the descending colon. Prostatic enlargement. Electronically Signed: Michael Uriostegui MD at 12:51 EDT ,
--- NOTE | 2024-03-21 10:13 | EX.ED.DYSGE1 ---
HPI History of Present Illness Chief Complaint: Nausea/Vomiting/Diarrhea Informant: patient Onset/Context/Timing Onset: Days (2 days) Current Severity: Moderate Maximum Severity: Moderate Narrative Narrative: Patient presents with 3-day history of abdominal pain with nausea, vomiting, and diarrhea. He denies any blood associated. He does feel as if he has been running a fever but did not measure his temperature at home. He states overall he just feels very weak. He denies history of similar illness. He does have a history of drinking. [facility] Medical History (Updated 03/21/24 @ 15:[address] Vonnie Buckner MD) Abdominal pain Medical History no medical history no medical history Home Medications ?Medication ?Instructions ?Recorded ?Last Taken ?Type cephalexin 500 mg capsule 500 mg PO Q6 #40 CAPSULES 05/17/21 Unknown Rx emollient combination no.72 1 ea topical BID PRN PRN dry skin 02/04/22 Unknown Rx (Eucerin Intensive Repair lotion) #250 mL mupirocin 2 % topical ointment 1 applic topical BID #15 grams 02/04/22 Unknown Rx dicyclomine 20 mg tablet 40 mg (2 x 20 mg) PO BID PRN 03/21/24 Unknown Rx abdominal pain #14 tabs hydrocodone-acetaminophen 5-325mg 1 tab PO Q6H PRN PRN Pain 3 days 03/21/24 Unknown Rx 5mg-325mg #10 TABLETS lisinopril 10 mg tablet 10 mg PO DAILY #30 tabs 03/21/24 Unknown Rx ondansetron 4 mg disintegrating 4 mg PO Q8H PRN PRN Nausea #10 tabs 03/21/24 Unknown Rx tablet Allergy/AdvReac Type Severity Reaction Status Date / Time No Known Allergies Allergy Verified 03/21/24 09:51 Social History (Updated 03/21/24 @ 10:[address] Vonnie Buckner MD) household members: none Smoking Status: Never smoker alcohol intake: current substance use type: does not use ROS ROS ED Constitutional Constitutional ED: Reports fever(s) and subjective; Denies chills Eyes Eyes: Denies change in vision or discharge from eye(s) ENT ENT ED: Denies discharge from eye(s), rhinorrhea or sore throat Cardiovascular Cardiovascular: Denies chest pain Respiratory/Chest Respiratory/Chest: Denies cough or dyspnea Gastrointestinal Gastrointestinal: Reports abdominal pain, diarrhea, nausea and vomiting Genitourinary Genitourinary ED: Denies dysuria Musculoskeletal Musculoskeletal: Denies back pain or extremity pain Integumentary Denies Abrasions or rash Neurologic Neurologic: Reports weakness; Denies headache(s) Psychiatric Psychiatric: Denies anxiety or depression Allergic/Immunologic Allergic/Immunologic ED: Denies lip swelling or urticaria EXAM Physical Exam Const Vital Signs: 03/21/24 09:51 03/21/24 13:00 03/21/24 13:18 Temperature 98.8 F Temperature Source Temporal Pulse Rate 59 L 63 61 Respiratory Rate 18 18 Blood Pressure 201/103 H 215/117 H 232/112 H Blood Pressure Mean 135 149 152 Pulse Ox 98 98 Oxygen Delivery Method Room Air 03/21/24 14:12 Temperature Temperature Source Pulse Rate 59 L Respiratory Rate Blood Pressure 218/125 H Blood Pressure Mean 156 Pulse Ox Oxygen Delivery Method Positive well nourished and well developed General Appearance ED: well developed HEENT Reports moist mucous membranes Eyes EOMs intact bilaterally Chest Wall inspection of chest normal and palpation of chest normal Resp normal respiratory effort and clear to auscultation bilaterally Cardio regular rate and regular rhythm GI GI Narrative: Abdomen soft with mild diffuse tenderness. No guarding or rebound. Active bowel sounds are noted. Extremity normal to inspection Neuro oriented x3 and no sensory deficits noted Motor Exam: strength 5/5 throughout Psych mental status grossly normal Skin no rashes or lesions noted MDM MDM MDM Narrative Medical decision making narrative: IV line established. Patient given IV fluids, Zofran, and morphine. Labwork obtained to evaluate for leukocytosis, anemia, and electrolyte derangement. CT scan of the abdomen pelvis obtained to evaluate for colitis, pancreatitis. History & Record Review Discussion w/independent historian: Patient Lab Data Attestation: I reviewed the patient's lab results. Labs: Laboratory Results - last 24 hr 03/21/24 03/21/24 03/21/24 10:02 11:26 13:28 WBC 13.8 H RBC 5.78 Hgb 16.4 Hct 51.2 MCV 88.6 MCH 28.4 MCHC 32.0 RDW Std Deviation 44.6 H RDW Coeff of Scot 13.8 Plt Count 399 MPV 10.2 Immature Gran % (Auto) 0.200 Neut % (Auto) 90.6 H Lymph % (Auto) 5.6 L [place] % (Auto) 3.5 Eos % (Auto) 0.0 Baso % (Auto) 0.1 Absolute Neuts (auto) 12.5 H Absolute Lymphs (auto) 0.77 L Nucleated RBC % 0 Sodium 138 Potassium 3.9 Chloride 104 Carbon Dioxide 22.0 Anion Gap 12 BUN 21 H Creatinine 1.58 H Estim Creat Clear Calc 53.77 Est GFR (MDRD) Af Amer 58 L Est GFR (MDRD) Non-Af 48 L BUN/Creatinine Ratio 13.3 Glucose 143 H Lactic Acid 1.7 Calcium 10.3 H Total Bilirubin 1.10 H Direct Bilirubin 0.24 AST 20 ALT 21 Alkaline Phosphatase 103 Total Protein 10.0 H Albumin 4.3 Globulin 5.7 H Lipase 89 H Urine Color Yellow Urine Clarity Clear Urine pH 5.0 Ur Specific [place] 1.025 Urine Protein 100 H Urine Glucose (UA) Normal Urine Ketones 150 A* Urine Occult Blood 25 H Urine Nitrite Negative Urine Bilirubin Negative Urine Urobilinogen Normal Ur Leukocyte Esterase Negative Urine RBC 0 SEEN Urine WBC 0-5 SEEN Ur Squamous Epith Cells 0-5 SEEN Urine Bacteria 1+ Fine Granular Casts 0-5 SEEN Urine Mucus 3+ Radiography Diagnostic Testing: Clinical Impression(s) from Imaging Studies Abdomen/Pelvis CT 03/21/24 10:11 IMPRESSION: Findings suggestive of colitis involving the ascending colon, transverse colon and portion of the descending colon. Prostatic enlargement. Electronically Signed: Michael Uriostegui MD at 12:51 EDT , EKG Initial EKG: Attestation: I personally reviewed and interpreted this EKG as follows: Interpretation: Sinus Bradycardia (Sinus bradycardia 58 bpm. No acute ischemia. QTc is 445.) Treatment and Re-Evaluation :: Patient initially given morphine, Zofran, and IV fluids. CBC was a white count of 13.8 with 90% neutrophils. Hemoglobin 16.4. Chemistry studies significant for BUN of 21 and creatinine 1.58. Glucose is 143. LFTs revealed total bili of 1.1. His lipase is only mildly elevated to 89. Urinalysis reveals 150 ketones with no evidence of acute infection. CT scan of the abdomen pelvis obtained reveals findings suggestive of colitis involving the ascending colon, transverse colon, and a portion of the descending colon. Prostatic enlargement is noted. Due to continued pain and nausea he does receive a dose of Phenergan and morphine. With the finding of colitis I did give him a dose of Zosyn. In spite of pain medication his blood pressure remained elevated over 200 systolic and he was given a dose of hydralazine. Patient's blood pressure was not significantly improved with 10 mg of IV hydralazine. He was then given 20 mg systolic pressures currently 180. I did speak with Dr. Luo as my review of the CT scan did not show significant colitis. He does not feel patient requires antibiotics. Lactic acid is normal. He did recommend IV Ativan and IM Bentyl for pain control. My plan was to admit the patient due to continued nausea and vomiting along with blood pressure control. At this time patient is refusing hospital admission and states he needs to leave. I advised him that I would have him sign out AGAINST MEDICAL ADVICE and will be happy to write him prescriptions as well as give him numbers of doctors for follow-up. He knows he can return at any time. Discharge Plan Triage Chief Complaint: Nausea/Vomiting/Diarrhea ED Provider: Vonnie Buckner Dx/Rx/DC Orders Clinical Impression: Colitis, Hypertension, Vomiting Instructions: ED Gastroenteritis, Noninfectious, ED Hypertension New Begin Treatment Prescriptions: New lisinopril 10 mg tablet 10 mg PO DAILY Qty: 30 0RF ondansetron 4 mg tablet,disintegrating 4 mg PO Q8H PRN PRN (Reason: Nausea) Qty: 10 0RF dicyclomine 20 mg tablet 40 mg PO BID PRN (Reason: abdominal pain) Qty: 14 0RF hydrocodone-acetaminophen 5-325 mg tablet 1 tab PO Q6H PRN PRN (Reason: Pain) 3 Days Qty: 10 0RF No Action cephalexin [cephalexin] 500 MG capsule 500 mg PO Q6 Qty: 40 0RF Eucerin Intensive Repair Lotion 1 ea topical BID PRN PRN (Reason: dry skin) Qty: 250 0RF mupirocin 2 % ointment 1 applic topical BID Qty: 15 0RF Rx Instructions: apply to nasal area Primary Care Provider: Care Physician,No Primary Referrals: Ann Odonnell MD [Med Staff - Non Destructive Tester] - 1 Week Rey Luo [Med Staff - Active Staff] - As Needed Care Physician,No Primary [Primary Care Provider] - Print Language: Greek Disposition Disposition: Against Medical Advice
--- NOTE | 2024-03-21 10:14 | NURSING ---
NO OLD EKGS
[2024-03-21] MEDS: Ondansetron 4 MG/2 ML Vial IV ×2 (10:19→15:22)
[2024-03-21] MEDS: 0.9% Normal Saline (1000mL) 1,000 ML 1000 ML IV (10:19)
[2024-03-21] MEDS: Morphine 4 MG/ML Syringe IV ×2 (10:19→13:15)
[2024-03-21 10:26] LABS: Absolute Lymphocyte Count 0.77 X10^3/uL (0.83-4.51); Absolute Neutrophil Count 12.5 X10^3/uL (2.0-7.7); Basophil# 0.02 X10^3/uL; Basophil% 0.1 % (0-1); Hematocrit 51.2 % (40-54); Hemoglobin 16.4 g/dL (13.0-16.5); Lymphocyte # 0.77 X10^3/ul (0.83-4.51); Lymphocyte % 5.6 % (19-41); Mean Corpuscular Hgb 28.4 pg (27.0-32.0); Mean Corpuscular Volume 88.6 fL (80-94); Mean Platelet Vol. 10.2 fl (6.2-12.0); Monocyte# 0.49 X10^3/uL; Monocyte% 3.5 % (0-10); NRBC Flagged by Analyzer 0 % (0-5); Neutrophil # 12.51 X10^3/uL (2.7-7.7); Neutrophil % 90.6 % (47-70); Platelet Count 399 K/mm3 (150-450); RBC Distribution Width CV 13.8 % (11.6-14.6); RBC Distribution Width SD 44.6 fl (35.1-43.9); Red Blood Count 5.78 M/mm3 (4.6-6.2); White Blood Count 13.8 K/mm3 (4.4-11.0)
[2024-03-21 10:55] LABS: AST(SGOT) 20 U/L (15-37); Alanine Aminotransfer ALT/SGPT 21 U/L (16-61); Albumin, Serum 4.3 g/dL (3.2-5.0); Alkaline Phosphatase 103 U/L (45-117); Anion Gap 12 (5-15); BUN 21 mg/dL (7-18); BUN/Creat Ratio 13.3 RATIO (10-20); Bilirubin, Direct 0.24 mg/dL (0.00-0.30); Calcium,Total 10.3 mg/dL (8.5-10.1); Chloride 104 mmol/L (98-107); Creatinine, Serum 1.58 mg/dL (0.70-1.30); EST Glomerular Filtration Rate 48 mL/min (>60); Est Glom Filt Rate - Afr Amer 58 mL/min (>60); Estimated Creatinine Clearance 53.77 ml/min; Globulin 5.7 g/dL (2.2-4.2); Glucose 143 mg/dL (74-106); Lipase 89 U/L (13-75); Potassium 3.9 mmol/L (3.5-5.1); Sodium Level 138 mmol/L (136-145)
[2024-03-21 11:32] LABS: Red Blood Cells-Urine 0 SEEN /hpf (0-5)
[2024-03-21 11:37] LABS: Color, Urine Yellow (Yellow); Glucose, Dipstick Normal (Normal); Leukocyte Esterase-Dipstick Negative /ul (Negative); Nitrite-Dipstick Negative (Negative); Occult Blood-Urine 25 /ul (Negative); Protein-Dipstick 100 mg/dl (Negative); Specific Gravity, Urine 1.025 (1.002-1.030); Urine Bilirubin Dipstick Negative (Negative); Urine Clarity Clear (Clear); Urine Urobilinogen Normal (Normal)
[2024-03-21 11:43] LABS: Ketone-Dipstick 150 mg/dl (Negative)
[2024-03-21 11:52] LABS: Fine Granular Cast- Urine 0-5 SEEN /lpf (0-5); Mucous, Urine 3+ /hpf (<or=2+)
[2024-03-21 11:53] LABS: Bacteria 1+ /hpf (None Seen); Squamous Epithelial Cells - UA 0-5 SEEN /hpf (0-5); White Blood Cells 0-5 SEEN /hpf (0-5)
[2024-03-21 13:00] VITALS: BP 215/117; PULSE 63
[2024-03-21] MEDS: proMETHazine 25 MG/ML Syringe 12.5 MG IM (13:14)
[2024-03-21] MEDS: hydrALAZINE 20 MG/ML Vial 10 MG IV (13:17)
[2024-03-21 13:18] VITALS: BP 232/112; PULSE 61; RESP 18; O2SAT 98
[2024-03-21] MEDS: Piperacil/Tazobactam 3.375 GM in 0.9% Normal Saline (50mL MB+) 50 ML IV (13:22)
[2024-03-21] MEDS: 0.9% Normal Saline (1000mL) 1,000 ML 150 ML IV (13:22)
[2024-03-21 14:12] VITALS: BP 218/125; PULSE 59
[2024-03-21 14:14] LABS: Lactic Acid 1.7 mmol/L (0.4-1.9)
[2024-03-21] MEDS: hydrALAZINE 20 MG/ML Vial IV (14:45)
[2024-03-21] MEDS: LORazepam 2 MG/ML Syringe 1 MG IV (15:21)
[2024-03-21] MEDS: Dicyclomine 20 MG/2 ML Vial IM (15:21)
--- NOTE | 2024-03-21 15:48 | ED.RN ---
pt signed ama form as refusing to be admitted and stay. pt given copy and instructed of no driving for 4hrs as was just given morphine and now benzo. pt to go to waiting room for ride wait time
[2024-03-21 15:49] VITALS: BP 180/81; PULSE 87; RESP 18; TEMP 37; O2SAT 97
== END 2024-03-21 15:52 | disposition left against medical advice (07) ==
PROVIDERS: Emergency Provider Emergency Medicine; Visit Provider Emergency Medicine
DX: K52.9 Noninfective gastroenteritis and colitis, unspecified (principal); I10 Essential (primary) hypertension
CPT/HCPCS: 74177; 80048; 80076; 81001; 83605; 83690; 85025; 93005; 96361; 96365; 96372; 96375; 96376; 99285; J7030; Q9967; A4216; J2405

== ENCOUNTER 2024-08-14 20:27 | Emergency (ER) | payer SELFPAY ==
[2024-08-14 20:28] VITALS: BP 166/110; PULSE 97; RESP 18; TEMP 36.2; O2SAT 98; BMI 28.1
== END 2024-08-14 20:35 | disposition left against medical advice (07) ==
LOC: ED 20:51
DX: Z53.21 Procedure and treatment not carried out due to patient leaving prior to being seen by health care provider (principal)

== ENCOUNTER 2024-08-14 22:34 | Emergency (ER) | payer SELFPAY ==
[2024-08-14 22:35] VITALS: BP 177/115; PULSE 121; RESP 25; TEMP 36.6; O2SAT 97; BMI 28.1
--- NOTE | 2024-08-14 23:23 | EDS_ITS ---
HPI History of Present Illness Chief Complaint: Other, Pain/Inj Informant: patient Narrative Narrative: Patient is a 59-year-old male with no reported significant past medical history. He states he has been having lesions to his nose and fingers for the last 1 to 2 weeks that have been worsening. He states that this happened a few years ago and there was a cream that resolved the symptoms. He states he does not remember the exact diagnosis or the medication he was prescribed but as his symptoms are similar to his presentation from a few years ago presents to the ER hoping to get repeat medication to control his skin lesions PFSH PFS Medical History (Updated 08/15/24 @ 02:[address] Greg Tovar, DO) Abdominal pain Home Medications ?Medication ?Instructions ?Recorded ?Last Taken ?Type lisinopril 10 mg tablet 10 mg PO DAILY #30 tabs 03/21/24 Unknown Rx cephalexin 500 mg capsule 500 mg PO 4X/DAY 10 days #40 08/14/24 Unknown Rx CAPSULES mupirocin calcium 2 % topical cream 1 applic topical BID 10 days #30 08/14/24 Unknown Rx grams Allergy/AdvReac Type Severity Reaction Status Date / Time No Known Allergies Allergy Verified 08/14/24 22:35 Social History (Updated 03/21/24 @ 10:[address] Vonnie Buckner MD) household members: none Smoking Status: Never smoker alcohol intake: current substance use type: does not use ROS ROS ED Constitutional Constitutional ED: Denies chills or fever(s) Eyes Eyes: Denies blurry vision or change in vision ENT ENT ED: Denies rhinorrhea or sore throat Cardiovascular Cardiovascular: Denies chest pain Respiratory/Chest Respiratory/Chest: Denies cough or dyspnea Gastrointestinal Gastrointestinal: Denies abdominal pain, diarrhea, nausea or vomiting Genitourinary Genitourinary ED: Denies dysuria Musculoskeletal Musculoskeletal: Denies myalgias Integumentary Reports rash Neurologic Neurologic: Denies headache(s) Hematologic/Lymphatic Hematologic/Lymphatic: Denies easy bleeding or easy bruising Allergic/Immunologic Allergic/Immunologic ED: Denies mouth swelling or tongue swelling EXAM Physical Exam Const Vital Signs: 08/14/24 22:35 08/14/24 22:49 Temperature 97.9 F Temperature Source Temporal Pulse Rate 121 H Respiratory Rate 25 H Respiratory Effort Normal Non-Labored Respiratory Pattern Normal Blood Pressure 177/115 H Blood Pressure Mean 135 Pulse Ox 97 Oxygen Delivery Method Room Air Positive well nourished and well developed General Appearance ED: well developed HEENT HEENT Narrative: No tongue or lip swelling no oral lesions no airway edema or compromise No signs of infection noted in the posterior pharynx Patient does have circular erythematous excoriated skin breakdown along the tip of the nose and along the bilateral nasal ala most consistent with the scopic eczema with secondary infection. However no abscess formation noted Eyes PERRL and EOMs intact bilaterally General Eye ED: Negative for scleral icterus Neck supple Resp normal respiratory effort and clear to auscultation bilaterally Cardio regular rhythm Rate: tachycardic Extremity Extremity Narrative: No asymmetric edema no pitting edema negative Homans' sign bilaterally Patient has similar excoriated dry circular lesions along the finger pads of brian th the right and left hand mainly along the thumb and index finger consistent with dyshidrotic eczema with faint secondary infection. However no involvement of the pulp to suggest felon. No signs of paronychia and no lymphangitic streaking. Neuro oriented x3, CN's II-XII intact bilaterally and no sensory deficits noted Sensorium / Orientation: alert Motor Exam: strength 5/5 throughout Psych mental status grossly normal Skin Skin Narrative: Soft tissue lesions as document above consistent with dyshidrotic eczema with early secondary infection MDM MDM MDM Narrative Medical decision making narrative: Patient presented to the ER hypertensive. He reported lesions to his nose and fingers and states he has had these in the past and they resolve with a topical cream. Chart review reveals that this was diagnosed as dyshidrotic eczema in 2021. His exam today does correlate with that and with mild erythema there is signs of secondary infection but he does not have an abscess or cellulitis along the bridge of the nose and there are no signs of a felon or paronychia along the finger pad. Therefore at this time I only feel the need to place him on oral antibiotics and topical Bactroban which resolved his symptoms in 2021 and as he does not have findings to suggest systemic infection is otherwise safe for discharge. History & Record Review Discussion w/independent historian: Patient Discharge Plan Triage Chief Complaint: Other, Pain/Inj Other Complaint: Wound ED Provider: Greg Tovar Dx/Rx/DC Orders Clinical Impression: Dyshidrotic eczema, Hypertension Instructions: Managing Atopic Dermatitis (Eczema), ED Atopic Dermatitis (Adult) Prescriptions: New cephalexin 500 mg capsule 500 mg PO 4X/DAY 10 Days Qty: 40 0RF mupirocin calcium 2 % cream 1 applic topical BID 10 Days Qty: 30 1RF No Action lisinopril 10 mg tablet 10 mg PO DAILY Qty: 30 0RF Stand Alone Forms: ED Work / School Excuse Primary Care Provider: Care Physician,No Primary Referrals: Rodolfo Steve MD [Med Staff - Active Staff] - Care Physician,No Primary [Primary Care Provider] - Print Language: Portuguese Disposition Disposition: Home, Self Care Discharge Date/Time: 08/14/24 23:40
[2024-08-14] MEDS: Mupirocin Ointment 22gm Tube 1 APPLIC TOPICAL (23:30)
[2024-08-14] MEDS: Cephalexin 250 MG Capsule 500 MG PO (23:37)
== END 2024-08-14 23:40 | disposition home or self-care (01) ==
PROVIDERS: Emergency Provider Emergency Medicine; Visit Provider Emergency Medicine
DX: L30.1 Dyshidrosis [pompholyx] (principal); I10 Essential (primary) hypertension; Z79.899 Other long term (current) drug therapy
CPT/HCPCS: 99283